=== PATIENT | female | born 1970 | race Caucasian/White ===

== ENCOUNTER 2016-11-07 16:40 | Emergency (ER) | payer OTHER ==
[~2016-11-07] VITALS: Ht 165.1 cm; Wt 67.1 kg
--- NOTE | 2016-11-07 17:40 | ED HEADACHE COMPLAINT ---
History of Present Illness General Chief Complaint: Headache Stated Complaint: MIGRAINE Source: patient, old records Exam Limitations: no limitations Vital Signs & Intake/Output Vital Signs & Intake/Output Vital Signs Date Time Temp Pulse Resp B/P B/P Pulse O2 O2 Flow FiO2 Mean Ox Delivery Rate 11/07 2002 98.0 85 18 105/68 99 Room Air 11/07 1924 85 16 90/51 100 Room Air 11/07 1844 98.3 83 16 94/55 98 Room Air 11/07 1650 96.0 72 20 115/66 98 Room Air ED Intake and Output 11/08 0000 11/07 1200 Intake Total 1200 Output Total Balance 1200 Intake, IV 1200 Patient 148 lb Weight Weight Estimated Measurement Method Allergies Coded Allergies: No Known Allergies (11/07/16) Reconcile Medications Butalb/Acetaminophen/Caffeine (Tyjdfs-Zfdkcrzy-Hmcu 50-325-40) 50 MG-325 MG-40 MG TABLET 1 TAB PO DAILY PRN HEADAHCE (Reported) Ondansetron (Zofran Odt) 4 MG TAB.RAPDIS 1 TAB SL TID PRN nausea Triage Note: PT TO ED C/O MIGRAINE SINCE THIS AM. STATES SHE TOOK HER PRESCRICED FIORICET AROUND 0430 AND THEN MOTRIN AROUND 0700. PT HAS NOT HAD ANY MEDS SINCE THIS AM DUE TO VOMITING. Triage Nurses Notes Reviewed? yes Onset: Abrupt Duration: day(s): (1), constant Timing: recent history Quality/Severity: mild, moderate, achy, constant Severity Numbers: 8 Head Injury Location: global No Modifying Factors: none Associated Symptoms: DENIES HPI: 46-year-old female history of migraines, Chiari malformation requiring surgery in 2000 presents to ER complaining of migraine since this morning generalized nonradiating associated photosensitivity and nausea. She took fioricet and Motrin without improvement. No vomiting no vision changes recent fall or head trauma. She does not seen by a neurologist regarding her migraines. No fever chills chest pain shortness of breath abdominal pain. No other modifying factors or associated symptoms otherwise (TRISTON FIGUEREDO,ROSY) Past History Travel History Traveled to [place] past 21 day No Medical History Any Pertinent Medical History? see below for history Neurological: migraine Surgical History Surgical History: chiari decompression Psychosocial History What is your primary language Thai Tobacco Use: Current Daily Use Daily Tobacco Use Amount/Type: => 5 Cigarettes daily ETOH Use: denies use Illicit Drug Use: denies illicit drug use Family History Hx Contributory? No (ROSY CARTWRIGHT) Review of Systems Review of Systems Constitutional: Reports: see HPI. All Other Systems: Reviewed and Negative Comments Review of systems: See HPI, All other systems negative. Constitutional, no chills no fever, no malaise HEENT: No visual changes no sore throat no congestion, no ear pain Cardiovascular: No chest pain , no palpitation , no orthopnea Skin: no rashes, no change in skin Respiratory: No dyspnea no cough no sputum no hemoptysis GI: nausea no vomiting, no diarrhea, no bloating/constipation : No dysuria Muscle skeletal: No joint pain, no joint swelling, no back pain, no neck pain, Neurologic: No numbness no confusion, headache Psych: No stress no depression,. Heme/endocrine: No bruising no bleeding Immunology: No lymphadenopathy (ROSY CARTWRIGHT) Physical Exam Physical Exam General Appearance: well developed/nourished, no apparent distress, alert, awake Cranial Nerves: normal hearing, normal speech, PERRL Comments: Well-developed well-nourished person in no acute distress HEENT: Normal EENT exam; PERRL, EOMI, no nystagmus. HEAD is atraumatic. nontender, no rash, moist mucous membranes. External aud canals, tms clear wnl b/l Neck: Supple, no lymphadenopathy, normal range of motion without pain or tenderness Back: Nontender, no CVA tenderness. Full range of motion Cardiovascular: Regular rate and rhythms no murmurs rubs or gallops, normal JVP Respiratory: Chest nontender.There were no bony deformities, no asymmetry. No respiratory distress. Patient speaking in full complete sentences. Breath sounds clear to auscultation bilaterally: NO W/R/R Extremity: No edema, full range of motion of extremities, normal and equal pulses bilaterally, 5 out of 5 strength noted to bilateral upper and lower extremities Neuro: Alert oriented x3, motor sensory normal, cranial nerves II through XII grossly intact. There were no obvious focal neurologic abnormalities. Skin: No appreciable rash on exposed skin, skin is warm and dry. Psych: Mood and affect is normal, memory and judgment is normal. Core Measures Severe Sepsis Present: No Septic Shock Present: No (ROSY CARTWRIGHT) Progress Differential Diagnosis: cluster ARAYA, encephalitis, IC mass/tumor, intracranial Hem., meningitis, migraine ARAYA, musculoskeletal pain, subarach. Hem., tension ARAYA, temporal arteritis, pseudotumor Plan of Care: Current Medications Sig/David Start time Last Medication Dose Stop Time Status Admin Morphine Sulfate 4 MG ONCE ONE 11/07 1914 CAN (Morphine) 11/08 1915 Patient medicated with Decadron saline Reglan Benadryl Toradol, old records reviewed CAT scan ordered 11/07/2016 7:24:18 PM PT patient stated to nursing that her headache had improved significantly, when I evaluated the patient she stated that symptoms have slightly improved however not totally resolved IV Tylenol morphine 4 mg IV ordered to discuss with them at late her CAT scan results 11/07/2016 8:34:11 PM patient reports to feeling improved with like to be discharged to discuss with her need to follow-up with her primary care physician information is provided as well for follow-up with neurology prescription for Zofran provided she feels comfortable with this plan and she has FIORICET AT HOME. Return precautions were discussed, patient was ambulatory around the emergency room with steady gait cleared for discharge (TRISTON FIGUEREDO,ROSY) Diagnostic Imaging: Viewed by Me: CT Scan. Discussed w/RAD: CT Scan. Radiology Impression: PATIENT: FRANTZ JUAN PRESENT AGE: 46 PATIENT ACCOUNT NO: [id number] : 69 LOCATION: [facility] ORDERING PHYSICIAN: ROSY FIGUEREDO SERVICE DATE: 11/07/16 EXAM TYPE: CAT - CT HEAD WO IV CONTRAST EXAMINATION: CT HEAD WITHOUT CONTRAST CLINICAL INFORMATION: Headache. COMPARISON: None TECHNIQUE: Contiguous axial imaging was performed from the skull base to vertex without intravenous administration of contrast. The study is limited due to patient motion. DLP: 872.13 mGy-cm FINDINGS: There is a midline occipital craniectomy defect. The cerebellar tonsils appear low-lying in position and findings may be due to a prior Chiari decompression; correlate for prior surgical history. There is no evidence of acute intracranial hemorrhage or territorial infarction. No abnormal mass effect or midline shift is seen. Méndez to white matter differentiation is well preserved. No extra-axial fluid collections are identified. The ventricles are normal in size. There is no abnormal attenuation within the brain parenchyma. The osseous structures and soft tissues are otherwise normal. The mastoid air cells and visualized portions of the paranasal sinuses are well aerated. IMPRESSION: No acute intracranial pathology. Midline occipital craniectomy defect with suspected low-lying cerebellar tonsils. Findings may be due to prior Chiari decompression. DICTATED BY: NOEMI WHITE MD DATE/TIME DICTATED:1840 SURGICAL ASSISTANT:GERRY DATE/TIME TRANSCRIBED:11/07/161840 CONFIDENTIAL, DO NOT COPY WITHOUT APPROPRIATE AUTHORIZATION. <Electronically signed in Other Vendor System> SIGNED BY: NOEMI WHITE MD 11/07/161846 (ROSY CARTWRIGHT) Departure Departure Time of Disposition: 2031 Disposition: HOME OR SELF CARE Condition: Stable Clinical Impression Primary Impression: Migraine Referrals: ROSY CROSS MD PATIENT HAS NO PRIMARY CARE DR (PCP/Family) Additional Instructions: FOLLOW UP WITH YOUR PMD OR NEUROLOGIST DR CROSS. CONTINUE WITH YOUR MEDICATION PRESCRIBED. RETURN TO THE ER WITH ANY CONCERNS Departure Forms: Customer Survey General Discharge Information Prescriptions: Current Visit Scripts Ondansetron (Zofran Odt) 1 TAB SL TID PRN nausea #10 TAB (ROSY CARTWRIGHT) PA/HEALTH SPA MANAGER Co-Sign Statement Statement: ED Attending supervision documentation- [] I saw and evaluated the patient. I have also reviewed all the pertinent lab results and diagnostic results. I agree with the findings and the plan of care as documented in the PA's/HEALTH SPA MANAGER's documentation. [x] I have reviewed the ED Record and agree with the PA's/HEALTH SPA MANAGER's documentation. [] Additions or exceptions (if any) to the PAs/HEALTH SPA MANAGER's note and plan are summarized below: [] (NIYAH HAMMER,CARLITA Morocho)
--- NOTE | 2016-11-07 18:47 | CT SCAN REPORT ---
EXAMINATION: CT HEAD WITHOUT CONTRAST CLINICAL INFORMATION: Headache. COMPARISON: None TECHNIQUE: Contiguous axial imaging was performed from the skull base to vertex without intravenous administration of contrast. The study is limited due to patient motion. DLP: 872.13 mGy-cm FINDINGS: There is a midline occipital craniectomy defect. The cerebellar tonsils appear low-lying in position and findings may be due to a prior Chiari decompression; correlate for prior surgical history. There is no evidence of acute intracranial hemorrhage or territorial infarction. No abnormal mass effect or midline shift is seen. Méndez to white matter differentiation is well preserved. No extra-axial fluid collections are identified. The ventricles are normal in size. There is no abnormal attenuation within the brain parenchyma. The osseous structures and soft tissues are otherwise normal. The mastoid air cells and visualized portions of the paranasal sinuses are well aerated. IMPRESSION: No acute intracranial pathology. Midline occipital craniectomy defect with suspected low-lying cerebellar tonsils. Findings may be due to prior Chiari decompression.
[2016-11-07 20:03] VITALS: BP 105/68
[2016-11-07] MEDS ORDERED: BUTALB-ACETAMI1 EACH PO (20:04)
[2016-11-07] MEDS ORDERED: ZOFRAN ODT4 M1 SL (20:32)
== END 2016-11-07 20:57 ==
LOC: ERH 16:40
DX: G43.909 Migraine, unspecified, not intractable, without status migrainosus (principal)
CPT/HCPCS: 96374; 96375; J0131; J1100; J1200; J1885; J2405; J2765

== ENCOUNTER 2016-11-14 08:02 | Emergency (ER) | payer OTHER ==
[~2016-11-14] VITALS: Ht 165.1 cm; Wt 65.8 kg
[~2016-11-14 08:02] MED LIST: BUTALB-ACETAMI1 EACH PO; ZOFRAN ODT4 M1 SL
--- NOTE | 2016-11-14 08:09 | ED GENERAL ADULT ---
History of Present Illness General Chief Complaint: Headache Stated Complaint: HEADACHE X 1WEEK Source: patient Exam Limitations: no limitations Vital Signs & Intake/Output Vital Signs & Intake/Output Vital Signs Date Time Temp Pulse Resp B/P B/P Pulse O2 O2 Flow FiO2 Mean Ox Delivery Rate 11/14 1013 98.2 79 16 102/52 98 Room Air 11/14 0807 98.0 75 16 107/69 98 Room Air Allergies Coded Allergies: No Known Allergies (11/07/16) Reconcile Medications Butalb/Acetaminophen/Caffeine (Mfdtyn-Wcuhmukk-Rqfg 50-325-40) 50 MG-325 MG-40 MG TABLET 1 TAB PO DAILY PRN HEADAHCE (Reported) Oxycodone HCl/Acetaminophen (Percocet 5-325 MG Tablet) 5 MG-325 MG TABLET 1 TAB PO BID PRN headache Triage Nurses Notes Reviewed? yes HPI: 46-year-old female with history of recurrent headaches secondary to chiari malformation presenting with headache 24 hours. Reports nonradiating throbbing frontal headache associated with photophobia, nausea, and vomiting. Has tried Fioricet and ibuprofen at home without relief. Patient seen in the ED 1 week ago for the same, had negative CT head, was given IV fluids, Toradol, Reglan, Benadryl, dexamethasone with good improvement. Patient was asymptomatic in the subsequent days up until yesterday when headache return, and she has been unable to break it with home medications. Denies lightheadedness, dizziness, where he vision, visual changes, confusion. Past History Medical History Any Pertinent Medical History? see below for history Neurological: migraine Surgical History Surgical History: chiari decompression Psychosocial History What is your primary language Angolan Family History Hx Contributory? No Review of Systems Review of Systems Constitutional: Reports: no symptoms. EENTM: Denies: blurred vision, double vision, visual changes. Respiratory: Reports: no symptoms. Cardiovascular: Reports: no symptoms. GI: Reports: nausea, vomiting. Denies: abdominal pain, diarrhea. Genitourinary: Reports: no symptoms. Musculoskeletal: Reports: no symptoms. Skin: Reports: no symptoms. Neurological/Psychological: Reports: headache. Denies: confusion, numbness, paresthesia, tingling, tremors, weakness. 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 No CVA/TIA Diagnosis: No Severe Sepsis Present: No Septic Shock Present: No Progress Differential Diagnoses I considered the following diagnoses in my evaluation of the patient: [Tension headache versus cluster headache versus migraine versus ocular migraine versus hydrocephalus] Plan of Care: Current Medications Sig/David Start time Last Medication Dose Stop Time Status Admin Dexamethasone 10 MG 11/14 0830 CAN (Decadron) Patient with no pain relief after IV fluids, Toradol, Reglan, Benadryl, dexamethasone. Also tried Compazine without any improvement. Patient had good pain relief after morphine. Had recent CT head that was unremarkable during her most recent ED visit for same complaint one week ago. Given her prior diagnosis of chiari malformation should be evaluated with MRI brain. MRI is unavailable at this time and patient is stable with pain resolution, therefore patient will go for MRI as an outpatient. Registration has confirmed that her insurance has no prior authorization requirement, patient given slip for MRI and will follow up later today with central scheduling. Patient discussed with Dr. Alvarez ( neuro) who agrees with plan and had no further input. Patient has an appointment with neuro December 16, is in the process of establishing primary care provider so that she can hopefully be reevaluated sooner. Instructed to return to the ED for any neurologic symptoms. (KRISTOPHER HARTLEY,NELA) Initial ED EKG: none Departure Departure Disposition: HOME OR SELF CARE Condition: Stable Clinical Impression Primary Impression: Headache Referrals: PATIENT HAS NO PRIMARY CARE DR (PCP/Family) Additional Instructions: Use one tab of Percocet every 4-6 hours as needed for pain. Call Central scheduling to schedule your MRI. Follow-up with as scheduled on December 16. Return to the ED for any new or worsening symptoms. Departure Forms: Customer Survey General Discharge Information Prescriptions: Current Visit Scripts Oxycodone HCl/Acetaminophen (Percocet 5-325 MG Tablet) 1 TAB PO BID PRN headache #12 TAB Critical Care Note Critical Care Note Critical Care Time: non-applicable
[2016-11-14 10:13] VITALS: BP 102/52
[2016-11-14] MEDS ORDERED: PERCOCET 5-3251 EACH PO (12:40)
== END 2016-11-14 12:50 ==
LOC: ERH 08:02
DX: R51 Headache (principal)
CPT/HCPCS: 96361; 96374; 96375; J1100; J1200; J1885; J2765

== ENCOUNTER 2017-08-28 13:46 | Emergency (ER) | payer OTHER ==
[~2017-08-28] VITALS: Ht 165.1 cm; Wt 63.5 kg
[~2017-08-28 13:46] MED LIST changes: +PERCOCET 5-3251 EACH PO
[2017-08-28 14:43] LABS: ABSOLUTE BASOPHIL COUNT 0.1 /CUMM (0.0-0.2); ABSOLUTE EOSINOPHIL COUNT 0.1 /CUMM (0.0-0.7); ABSOLUTE GRANULOCYTE CT 6.1 /CUMM (1.4-6.5); ABSOLUTE LYMPH COUNT 2.4 /CUMM (1.2-3.4); ABSOLUTE MONOCYTE COUNT 0.6 /CUMM (0.10-0.60); BASOPHIL % 0.6 % (0.0-2.0); EOSINOPHIL % 1.4 % (0-5); GRANULOCYTE % 65.9 % (42.2-75.2); HEMATOCRIT 42.4 % (37-47); MEAN CORPUSCULAR HGB 30.3 PG (27.0-31.0); MEAN CORPUSCULAR HGB CONC 34.3 G/DL (33.0-37.0); MEAN CORPUSCULAR VOLUME 88.4 FL (81.0-99.0); MEAN PLATELET VOLUME 9.3 FL (7.4-10.4); PLATELET COUNT 219 /CUMM (130-400); WHITE BLOOD CELL COUNT 9.3 /CUMM (4.8-10.8)
[2017-08-28 15:40] VITALS: BP 104/60
== END 2017-08-28 17:08 | disposition admitted as inpatient to this hospital (09) ==
LOC: ERH 13:46
PROVIDERS: Emergency Medicine
DX: M25.511 Pain in right shoulder (principal); R07.9 Chest pain, unspecified
CPT/HCPCS: 93005; 93010; 99281